=== PATIENT | female | born 1965 | race Caucasian/White ===

== ENCOUNTER 2018-10-13 13:37 | Day surgery (SDC) | payer OTHER ==
[~2018-10-13] VITALS: Ht 165.1 cm; Wt 90.2 kg
[~2018-10-13 13:37] MED LIST: BUSP5; Cyclobenzaprine5 MG PO; EPIN.3I IM; EPIPEN 2-P0.3 MG/0.3; GABA300 PO; HYDPAM25; METPRE4DP PO; MULTI FOR HER1 EAC1; Norco 5-325 Ta1 EACH PO
== END 2018-10-13 16:45 | disposition home or self-care (01) ==
LOC: ORSCSDS 13:37
PROVIDERS: Student in an Organized Health Care Education/Training Program
PROC: 0DB58ZX Excision of Esophagus, Via Natural or Artificial Opening Endoscopic, Diagnostic (ICD-10-PCS; principal; 2018-10-13 15:00)
PROC: 0DB68ZX Excision of Stomach, Via Natural or Artificial Opening Endoscopic, Diagnostic (ICD-10-PCS; principal; 2018-10-13 15:00)
PROC: 0DB98ZX Excision of Duodenum, Via Natural or Artificial Opening Endoscopic, Diagnostic (ICD-10-PCS; principal; 2018-10-13 15:00)
DX: R10.11 Right upper quadrant pain (principal); B96.81 Helicobacter pylori [H. pylori] as the cause of diseases classified elsewhere; K29.70 Gastritis, unspecified, without bleeding; R63.4 Abnormal weight loss; F41.8 Other specified anxiety disorders; E66.9 Obesity, unspecified; Z68.33 Body mass index [BMI] 33.0-33.9, adult; Z87.891 Personal history of nicotine dependence; Z79.899 Other long term (current) drug therapy
CPT/HCPCS: 88305; 88342; J2704; J7120

== ENCOUNTER → 2023-12-22 | Outpatient (CLI) | payer OTHER ==
[2023-12-31 16:38] LABS: HPV HIGH RISK BY TMA Not Detected; HPV SOURCE Cervical
== END ==
LOC: LAB SHORT 18:11 → LAB 18:11
PROVIDERS: Family Medicine
DX: Z12.4 Encounter for screening for malignant neoplasm of cervix (principal)
CPT/HCPCS: 87624; G0123